=== PATIENT | female | born 2000 | race Caucasian/White ===

== ENCOUNTER 2024-07-06 00:15 | Outpatient (CLI) | payer OTHER ==
[~2024-07-06] VITALS: Ht 172.7 cm; Wt 115.0 kg
[2024-07-06 00:23] VITALS: BP 127/77
[2024-07-06] MEDS ORDERED: PRENTAB9 PO (00:38)
[2024-07-06] MEDS ORDERED: VITAD400CA FT (00:38)
[2024-07-06] MEDS ORDERED: ECOT81TA5 PO (00:38)
[2024-07-06] MEDS ORDERED: HOME MED LIST COMPLETE! XX SCH (01:10)
[2024-07-06] MEDS: LR 1,000 ML IV SCH (01:35)
[2024-07-06] MEDS: ANUSOL HC CREAM 30GM TOP PRN (01:35)
[2024-07-06] MEDS: ACETAMINOPHEN 500 MG TAB PO PRN (02:15)
[2024-07-06 02:44] LABS: Trichomonas vaginalis (AMP) NOT DETECTED (NEGATIVE)
[2024-07-06 03:07] LABS: GC DNA AMPLIFICATION NEGATIVE (NEGATIVE)
[2024-07-06 05:28] VITALS: BP 117/57
[2024-07-06] MEDS: BETAMETHASONE SOLUSPAN 6MG/ML 5ML VIAL IM ONE (09:36)
== END 2024-07-06 10:50 | disposition home or self-care (01) ==
LOC: M LDO 00:15
PROVIDERS: ATTEND Advanced Practice Midwife
DX: O26.853 Spotting complicating pregnancy, third trimester (principal); O32.1XX0 Maternal care for breech presentation, not applicable or unspecified; O99.213 Obesity complicating pregnancy, third trimester; O99.343 Other mental disorders complicating pregnancy, third trimester; E66.9 Obesity, unspecified; F32.A Depression, unspecified; Z3A.34 34 weeks gestation of pregnancy; Z87.59 Personal history of other complications of pregnancy, childbirth and the puerperium
CPT/HCPCS: 59025; 76815; 87661; 87810; 87850; 96360; 96361; 96372; G0463; J0702

== ENCOUNTER → 2024-07-06 | Outpatient (REF) ==
[~2024-07-06] MED LIST: ECOT81TA5 PO; PRENTAB9 PO; VITAD400CA FT
== END ==
LOC: M LAB REF 15:30
DX: Z00.00 Encounter for general adult medical examination without abnormal findings (principal)